=== PATIENT | female | born 1990 | race Caucasian/White ===

== ENCOUNTER 2019-02-10 22:36 | Emergency (ER) | payer SELFPAY ==
[~2019-02-10] VITALS: Ht 175.3 cm; Wt 77.1 kg
--- NOTE | 2019-02-10 22:41 | NUR ---
JOSEPH YAO IN ROOM WITH PATIENT
[2019-02-10] MEDS ORDERED: LACTATED RINGERS 1,000 ML IV SCH (22:45)
[2019-02-10] MEDS ORDERED: ONDANSETRON 4 MG/2 ML (SDV) Z0FRAN IVP ONE (22:45)
--- NOTE | 2019-02-10 22:47 | ED GI ---
General Stated Complaint: VOMITING, BURNING WITH URINATION Source of Information: Patient Exam Limitations: No Limitations (ADILSON ALVAREZ APRN) History of Present Illness Date Seen by Provider: Feb 10, 2019 Time Seen by Provider: 22:44 Initial Comments To ER per private vehicle from home with reports of suspected food poisoning. She states that starting this morning she's had uncontrollable nausea and vomiting, has vomited too many times to count. She's had about 5+ episodes of diarrhea. She doesn't know if there is any blood or mucus in the diarrhea because she is also on her menstrual period. She reports chills but has not checked her temperature. Reports diffuse abdominal cramping but no specific localized abdominal pain. Last night she ate pizza which she suspects is the cause. Her boyfriend ate this with her but had less of it. He also has nausea vomiting and diarrhea but his symptoms are manageable. She reports that urinating is painful and she suspects that she may have a UTI and would like to be checked for that as well. Timing/Duration: 12-24 Hours Severity/Quality: Moderate Location: Generalized Abdomen Radiation: No Radiation Associated Symptoms: Fever/Chills, Nausea/Vomiting (ADILSON ALVAREZ APRN) Allergies and Home Medications Allergies Coded Allergies: Sulfa (Sulfonamide Antibiotics) (Verified Allergy, Mild, 02/10/19) Home Medications No Active Prescriptions or Reported Meds Patient Home Medication List Home Medication List Reviewed: Yes (ADILSON ALVAREZ APRN) Review of Systems Review of Systems Constitutional: see HPI, chills; No fever EENTM: No Symptoms Reported Respiratory: No Symptoms Reported Cardiovascular: No Symptoms Reported Gastrointestinal: See HPI, Abdominal Pain (diffuse cramping), Diarrhea, Nausea, Poor Appetite, Poor Fluid Intake, Vomiting Genitourinary: No Symptoms Reported Musculoskeletal: no symptoms reported Skin: no symptoms reported Psychiatric/Neurological: No Symptoms Reported Endocrine: No Symptoms Reported (ADILSON ALVAREZ APRN) Past Glryerk-Sclzbk-[place] Hx Patient Social History Recent Foreign Travel: No Contact w/Someone Who Travel: No (ADILSON ALVAREZ APRN) Alcohol Use: Occasionally Uses Recreational Drug Use: Yes Drug of Choice: MJ Smoking Status: Never a Smoker (TATYANA BAHENA) Physical Exam Vital Signs Vital Signs - First Documented 02/10/19 22:41 Temp 98.1 Pulse 81 Resp 20 B/P (MAP) 121/73 (89) Pulse Ox 99 (TATYANA BAHENA) Vital Signs Capillary Refill : (ADILSON ALVAREZ APRN) Height/Weight/BMI Height: '" Weight: lbs. oz. kg; BMI Method: General Appearance: WD/WN, no apparent distress, other (no distress alert and oriented pleasant) HEENT: PERRL/EOMI, normal ENT inspection Respiratory: normal breath sounds, no respiratory distress, no accessory muscle use Cardiovascular: regular rate, rhythm, no murmur Gastrointestinal: normal bowel sounds, non tender, soft; No tenderness Extremities: normal range of motion, non-tender Neurologic/Psychiatric: alert, normal mood/affect, oriented x 3 Skin: normal color, warm/dry (ADILSON ALVAREZ APRN) Progress/Results/Core Measures Results/Orders Lab Results Laboratory Tests Test 02/10/19 22:50 02/10/19 23:00 Range/Units White Blood Count 10.9 4.3-11.0 10^3/uL Red Blood Count 4.92 4.35-5.85 10^6/uL Hemoglobin 14.3 11.5-16.0 G/DL Hematocrit 43 35-52 % Mean Corpuscular Volume 86 80-99 FL Mean Corpuscular Hemoglobin 29 25-34 PG Mean Corpuscular Hemoglobin Concent 34 32-36 G/DL Red Cell Distribution Width 13.7 10.0-14.5 % Platelet Count 289 130-400 10^3/uL Mean Platelet Volume 10.8 H 7.4-10.4 FL Neutrophils (%) (Auto) 69 42-75 % Lymphocytes (%) (Auto) 23 12-44 % Monocytes (%) (Auto) 8 0-12 % Eosinophils (%) (Auto) 0 0-10 % Basophils (%) (Auto) 0 0-10 % Neutrophils # (Auto) 7.5 1.8-7.8 X 10^3 Lymphocytes # (Auto) 2.5 1.0-4.0 X 10^3 Monocytes # (Auto) 0.8 0.0-1.0 X 10^3 Eosinophils # (Auto) 0.0 0.0-0.3 10^3/uL Basophils # (Auto) 0.0 0.0-0.1 10^3/uL Sodium Level 141 135-145 MMOL/L Potassium Level 3.1 L 3.6-5.0 MMOL/L Chloride Level 105 98-107 MMOL/L Carbon Dioxide Level 23 21-32 MMOL/L Anion Gap 13 5-14 MMOL/L Blood Urea Nitrogen 12 7-18 MG/DL Creatinine 1.06 0.60-1.30 MG/DL Estimat Glomerular Filtration Rate > 60 BUN/Creatinine Ratio 11 Glucose Level 85 70-105 MG/DL Calcium Level 9.4 8.5-10.1 MG/DL Corrected Calcium 8.5-10.1 MG/DL Total Bilirubin 0.8 0.1-1.0 MG/DL Aspartate Amino Transf (AST/SGOT) 20 5-34 U/L Alanine Aminotransferase (ALT/SGPT) 15 0-55 U/L Alkaline Phosphatase 64 40-136 U/L Total Protein 7.5 6.4-8.2 GM/DL Albumin 4.7 H 3.2-4.5 GM/DL Lipase 15 8-78 U/L Serum Test, Qualitative NEGATIVE NEGATIVE Urine Color YELLOW Urine Clarity CLEAR Urine pH 6 5-9 Urine Specific [place] 1.025 H 1.016-1.022 Urine Protein 2+ H NEGATIVE Urine Glucose (UA) NEGATIVE NEGATIVE Urine Ketones NEGATIVE NEGATIVE Urine Nitrite NEGATIVE NEGATIVE Urine Bilirubin NEGATIVE NEGATIVE Urine Urobilinogen 1 NORMAL MG/DL Urine Leukocyte Esterase 1+ H NEGATIVE Urine RBC (Auto) 1+ H NEGATIVE Urine RBC 0-2 /HPF Urine WBC 2-5 /HPF Urine Squamous Epithelial Cells 10-25 H /HPF Urine Crystals NONE /LPF Urine Bacteria TRACE /HPF Urine Casts NONE /LPF Urine Mucus LARGE H /LPF Urine Culture Indicated NO (TATYANA BAHENA) Medications Given in ED Current Medications Medications Dose Ordered Sig/César Route Start Time Stop Time Status Last Admin Dose Admin Ondansetron HCl 8 mg ONCE ONCE IVP 02/10/19 22:45 02/10/19 22:46 DC 02/10/19 23:01 8 MG (TATYANA BAHENA) Vital Signs/I&O 02/10/19 02/11/19 22:41 00:30 Temp 98.1 Pulse 81 59 Resp 20 18 B/P (MAP) 121/73 (89) 109/69 (82) Pulse Ox 99 100 02/11/19 00:00 Intake Total 1000 ml Balance 1000 ml (TATYANA BAHENA) Progress Progress Note #1: Time: 23:17 Progress Note Assumed care of the patient from Adilson Alvarez. Patient has complaints of urinary symptoms as well as nausea vomiting GI symptoms. We will given fluids meds and blood and urine is collected. Progress Note #2: Time: 00:41 Progress Note Patient feels 100% better has no nausea and is ready to go home. (TATYANA BAHENA) Departure Communication (Admissions) 2310-Care turned over to Dr Bahena (ADILSON ALVAREZ LINK CUTTER) Impression Primary Impression: Gastroenteritis Disposition: 01 HOME, SELF-CARE Condition: Improved Departure-Patient Inst. Decision time for Depature: 00:41 (TATYANA BAHENA) Referrals: NO,LOCAL PHYSICIAN (PCP/Family) Primary Care Physician Patient Instructions: [id number] Add. Discharge Instructions: Drink plenty of fluids. Sports drinks are acceptable. Once your nausea is gone then you can start eating more substantial foods. Use the Zofran 1 tablet every 6 hours as needed for nausea or vomiting. If your symptoms worsen, are accompanied by high fever, or significant abdominal pain not controlled with Tylenol 1000 g every 8 hours or ibuprofen 800 mg every 8 hours then please return to the nearest ER for further evaluation. Scripts Ondansetron (Ondansetron Odt) 4 Mg Tab.rapdis 4 MG PO Q6H PRN for NAUSEA/VOMITING, #8 TAB 0 Refills Prov: TATYANA BAHENA 02/11/19 ADILSON ALVAREZ APRN Feb 10, 2019 22:47 TATYANA BAHENA Feb 10, 2019 23:17
--- NOTE | 2019-02-10 22:55 | NUR ---
PATIENT AMBULITORY TO BATHROOM
--- NOTE | 2019-02-10 23:00 | NUR ---
BACK TO BED, CALL LIGHT IN REACH, WILL CONTINUE TO MONITOR. MOTHER IN ROOM WITH PATIENT AT THIS TIME.
[2019-02-10 23:08] LABS: BILIRUBIN,URINE NEGATIVE (NEGATIVE); CLARITY,URINE CLEAR; COLOR,URINE YELLOW; GLUCOSE, URINE (UA) NEGATIVE (NEGATIVE); KETONES,URINE NEGATIVE (NEGATIVE); LEUKOCYTE ESTERASE ,URINE 1+ (NEGATIVE); NITRITE,URINE NEGATIVE (NEGATIVE); PH,URINE 6 (5-9); PROTEIN,URINE 2+ (NEGATIVE); UROBILINOGEN,URINE 1 MG/DL (NORMAL)
[2019-02-10 23:12] LABS: BASOPHILS % (AUTO) 0 % (0-10); EOSINOPHILS % (AUTO) 0 % (0-10); HEMATOCRIT 43 % (35-52); HEMOGLOBIN 14.3 G/DL (11.5-16.0); LYMPHOCYTES # (AUTO) 2.5 X 10^3 (1.0-4.0); LYMPHOCYTES % (AUTO) 23 % (12-44); MEAN CORPUSCULAR HEMOGLOBIN 29 PG (25-34); MEAN CORPUSCULAR HGB CONC 34 G/DL (32-36); MEAN CORPUSCULAR VOLUME 86 FL (80-99); MEAN PLATELET VOLUME 10.8 FL (7.4-10.4); MONOCYTES # (AUTO) 0.8 X 10^3 (0.0-1.0); MONOCYTES % (AUTO) 8 % (0-12); NEUTROPHILS # (AUTO) 7.5 X 10^3 (1.8-7.8); NEUTROPHILS % (AUTO) 69 % (42-75); PLATELET COUNT 289 10^3/uL (130-400); RED CELL DISTRIBUTION WIDTH 13.7 % (10.0-14.5); WHITE BLOOD COUNT 10.9 10^3/uL (4.3-11.0)
[2019-02-10 23:17] LABS: BACTERIA,URINE TRACE /HPF; RBC,URINE 0-2 /HPF
--- NOTE | 2019-02-10 23:21 | NUR ---
CHECKED ON PATIENT, RESTING QUIETLY WITH FRIEND AND MOTHER IN ROOM. DENIES NEEDS AT THIS TIME. WILL CONTINUE TO MONITOR.
[2019-02-10 23:29] LABS: ALANINE AMINOTRANSFERASE 15 U/L (0-55); ALBUMIN 4.7 GM/DL (3.2-4.5); ALKALINE PHOSPHATASE 64 U/L (40-136); BILIRUBIN,TOTAL 0.8 MG/DL (0.1-1.0); BUN/CREATININE RATIO 11; CALCIUM 9.4 MG/DL (8.5-10.1); CARBON DIOXIDE 23 MMOL/L (21-32); CHLORIDE 105 MMOL/L (98-107); CREATININE SERUM 1.06 MG/DL (0.60-1.30); GFR ESTIMATED > 60; GLUCOSE 85 MG/DL (70-105); LIPASE 15 U/L (8-78); POTASSIUM 3.1 MMOL/L (3.6-5.0); SODIUM 141 MMOL/L (135-145); TOTAL PROTEIN 7.5 GM/DL (6.4-8.2)
--- NOTE | 2019-02-11 00:10 | NUR ---
checked on patient, she is resting quietly with friends and family in the room she denies any nausea or abdominal pain at this time. monitoring maintained. Dr Bahena updated on patient condition. call light in reach
[2019-02-11 00:30] VITALS: BP 109/69
[2019-02-11] MEDS ORDERED: RX-ONDANSETRON 4 MG ODT (ZOFRAN) PPK #4 ONE (00:39)
[2019-02-11] MEDS ORDERED: ONDA4TAB11 PO (00:43)
[2019-02-11] MEDS ORDERED: RX-ONDANSETRON 4 MG ODT (ZOFRAN) PPK #4 PO STA (00:43)
[2019-02-11 00:49] VITALS: BP 109/69
== END 2019-02-11 00:49 | disposition home or self-care (01) ==
LOC: ER 22:38
DX: K52.9 Noninfective gastroenteritis and colitis, unspecified (principal); Z88.2 Allergy status to sulfonamides
CPT/HCPCS: 36415; 80053; 81000; 83690; 84703; 85025; 96374